=== PATIENT | male | born 1990 | race African-American/Black ===

== ENCOUNTER 2024-06-11 22:37 | Emergency (ER) | payer BC, SELFPAY ==
[2024-06-11 22:39] VITALS: BP 134/81; PULSE 80; RESP 16; TEMP 36.3; O2SAT 100
[2024-06-12 00:31] LABS: Add Urine Microscopic? NO; Appearance Urine Clear (Clear); Bilirubin Urine Negative (Negative); Blood Urine Negative (Negative); Color Urine Yellow (Yellow); Glucose Urine UA Negative (Negative); Ketones Urine Negative (Negative); Leukocyte Esterase Ur Negative LEU/UL (Negative); Nitrate Urine Negative (Negative); Protein Urine Negative (Negative); Specific Grav Ur 1.011 (1.001-1.035); Urobilinogen Urine 0.2 mg/dL (<2.0); pH Urine 5.5 (5.0-9.0)
--- NOTE | 2024-06-12 00:39 | ED.GENADULT ---
HPI - General Adult General Chief complaint: Urogenital-Male Stated complaint: Urogenital Time Seen by Provider: 06/12/24 00:30 History of Present Illness HPI narrative: Patient is a 34-year-old gentleman who presents emergency department with chief complaint of needs STD treatment. The patient states that he had some whitish discharge from his penis the patient reports that it hurts whenever he urinates. Patient states that he has had chlamydia gonorrhea and Trichomonas in the past Related Data Allergies Allergy/AdvReac Type Severity Reaction Status Date / Time No Known Allergies Allergy Verified 06/12/24 00:30 Review of Systems Review of Systems: A 10 system review of systems was completed on the patient and is negative except for what is stated in the HPI. Nursing and ancillary documentation was reviewed. Exam Narrative: GENERAL: Well-appearing, well-nourished, and in no acute distress. HEAD: Normocephalic, atraumatic. EYES: PERRLA and EOMI. ENT: Nares clear, no rhinorrhea or epistaxis. Mucous membranes moist. NECK: Supple. CHEST: Clear to auscultation. No respiratory distress. HEART: Regular rate and rhythm. No murmur heard. Normal peripheral pulses. ABDOMEN: Soft, nontender, nondistended, normal active bowel sounds. EXTREMITIES: Normal range of motion. No edema. SKIN: Warm, dry, no rash. NEURO: No focal deficits. Alert and oriented x3. PSYCH: Normal mood and affect. Course Vital Signs Vital signs: Vital Signs Temperature 36.3 C L 06/11/24 22:39 Pulse Rate 80 06/11/24 22:39 Respiratory Rate 16 06/11/24 22:39 Blood Pressure 134/81 06/11/24 22:39 Pulse Oximetry 100 06/11/24 22:39 Oxygen Delivery Room Air 06/11/24 22:39 Temperature 36.3 C L 06/11/24 22:39 Pulse Rate 80 06/11/24 22:39 Respiratory Rate 16 06/11/24 22:39 Blood Pressure 134/81 06/11/24 22:39 Pulse Oximetry 100 06/11/24 22:39 Oxygen Delivery Room Air 06/11/24 22:39 Medical Decision Making [facility] Narrative Medical decision making narrative: Differential diagnosis includes STI, UTI Given the patient is having discharge and the patient is had prior history of STIs the patient was treated with Rocephin will be started on doxy and given a 2 g dose of Flagyl. Vital Signs Vital Signs: Vital Signs Temperature 36.3 C L 06/11/24 22:39 Pulse Rate 80 06/11/24 22:39 Respiratory Rate 16 06/11/24 22:39 Blood Pressure 134/81 06/11/24 22:39 Pulse Oximetry 100 06/11/24 22:39 Oxygen Delivery Room Air 06/11/24 22:39 Temperature 36.3 C L 06/11/24 22:39 Pulse Rate 80 06/11/24 22:39 Respiratory Rate 16 06/11/24 22:39 Blood Pressure 134/81 06/11/24 22:39 Pulse Oximetry 100 06/11/24 22:39 Oxygen Delivery Room Air 06/11/24 22:39 Lab Data Labs: Lab Results 06/12/24 06/12/24 Range/Units 00:15 00:16 Urine Color Pending Urine Appearance Pending Urine pH Pending Ur Specific [place] Pending Urine Protein Pending Urine Glucose (UA) Pending Urine Ketones Pending Ur Blood (Man) Pending Urine Nitrate Pending Urine Bilirubin Pending Urine Urobilinogen Pending Leukocyte Esterase Rfl Pending C. trachomatis (PCR) Pending N. gonorrhoeae (PCR) Pending Discharge Plan Discharge Clinical Impression: Urethritis Patient Disposition: Home, Self-Care Condition: Stable Instructions: Antibiotic Form, Urethritis (ED) Prescriptions: New doxycycline hyclate 100 mg tablet 100 mg PO BID Qty: 14 0RF Follow-up/Referrals: PHYSICIAN NOT ON STAFF,NONSTAFF [Primary Care Provider] - Time of Disposition: 00:42
[2024-06-12] MEDS: metroNIDAZOLE 500 MG TABLET 2000 MG PO (01:12)
[2024-06-12] MEDS: DOXYCYCLINE HYCLATE 100 MG TABLET PO (01:12)
[2024-06-12] MEDS: LIDOCAINE HCL 1% LOCAL INJ 10 ML VIAL (01:13)
[2024-06-12] MEDS: cefTRIAXone 1 GM VIAL 0.5 GM IM (01:13)
--- NOTE | 2024-06-12 01:16 | PC.NURSE ---
lidocaine was used to reconstitue rocehpin IM injection per medication instructions. IM injection was given to pt in the left upper gluteus margaux per pt request.
[2024-06-12 01:59] LABS: Chlamydia trachomatis DETECTED (NOT DETECTE); Neisseria gonorrhoeae PCR NOT DETECTED (NOT DETECTE)
== END 2024-06-12 01:41 | disposition home or self-care (01) ==
PROVIDERS: Emergency Provider Emergency Medicine
DX: N34.2 Other urethritis (principal)
CPT/HCPCS: 81003; 87491; 87591; 96372; 99283; A9270; J0696; J2003